=== PATIENT | female | born 1950 | race Caucasian/White ===

== ENCOUNTER 2018-02-05 04:53 | Outpatient (CLI) | payer MEDICARE | END 2018-02-05 23:59 | disposition home or self-care (01) | LOC: DIABETIC 04:53 | PROVIDERS: ATTEND Specialist | DX: E11.65 Type 2 diabetes mellitus with hyperglycemia (principal) | CPT/HCPCS: G0108 ==

== ENCOUNTER 2018-08-09 04:03 | Outpatient (CLI) | payer MEDICARE | END 2018-08-09 23:59 | disposition home or self-care (01) | LOC: DIABETIC 04:03 | PROVIDERS: ATTEND Specialist | DX: E11.65 Type 2 diabetes mellitus with hyperglycemia (principal); Z79.4 Long term (current) use of insulin; Z79.84 Long term (current) use of oral hypoglycemic drugs | CPT/HCPCS: G0108 ==

== ENCOUNTER 2018-11-11 02:10 | Outpatient (CLI) | payer MEDICARE | END 2018-11-11 23:59 | disposition home or self-care (01) | LOC: DIABETIC 02:10 | PROVIDERS: ATTEND Specialist | DX: E11.65 Type 2 diabetes mellitus with hyperglycemia (principal); Z79.84 Long term (current) use of oral hypoglycemic drugs; Z79.4 Long term (current) use of insulin | CPT/HCPCS: G0108 ==

== ENCOUNTER 2023-10-25 16:26 | Inpatient (IN) | payer MEDICARE ==
[~2023-10-25] VITALS: Ht 162.6 cm; Wt 76.4 kg
[2023-10-25] MEDS: ondansetron/PF 4mg/2ml inj IV ONE (18:01)
[2023-10-25] MEDS: normal saline 1000ml 1,000 ML IV SCH (18:02)
[2023-10-25] MEDS: HYDROmorphone 1 mg/ml syringe IV ONE (18:03)
[2023-10-25 18:24] LABS: BASOPHILS # (AUTO) 0.1 X10'3 (0-0.2); BASOPHILS % (AUTO) 0.3 % (0-1); EOSINOPHILS # (AUTO) 0.1 X10'3 (0-0.9); EOSINOPHILS % (AUTO) 0.8 % (0-6); HEMATOCRIT 39.9 % (35.0-45.0); HEMOGLOBIN 12.5 g/dl (12.0-16.0); LYMPHOCYTES # (AUTO) 1.2 X10'3 (1.1-4.8); LYMPHOCYTES % (AUTO) 8.5 % (21-51); MEAN CORPUSCULAR HEMOGLOBIN 25.6 PG (27.0-31.0); MEAN CORPUSCULAR HGB CONC 31.3 g/dL (33.0-36.5); MEAN CORPUSCULAR VOLUME 81.7 FL (78-98); MEAN PLATELET VOLUME 10.1 FL (7.4-10.4); MONOCYTES # (AUTO) 0.8 X10'3 (0-0.9); MONOCYTES % (AUTO) 5.7 % (2-12); NEUTROPHILS # (AUTO) 12.3 X10'3 (1.8-7.7); NEUTROPHILS % (AUTO) 84.7 % (42-75); PLATELET COUNT 185 X10'3 (140-440); RED BLOOD COUNT 4.89 X10'6 (4.20-5.60); RED CELL DISTRIBUTION WIDTH 15.9 % (11.5-14.5); WHITE BLOOD COUNT 14.6 X10'3 (4.5-11.0)
[2023-10-25 18:37] LABS: ALBUMIN 4.3 G/DL (3.4-5.0); ANION GAP 8 (8-16); APTT 23 SECONDS (22-32); BLOOD UREA NITROGEN 14 MG/DL (7-18); BUN/CREATININE RATIO 18.7 (10.0-20.0); CALCIUM 10.4 MG/DL (8.5-10.1); CHLORIDE 103 MMOL/L (99-107); CREATININE 0.75 MG/DL (0.40-0.90); GLUCOSE 185 MG/DL (70-104); POTASSIUM 4.3 MMOL/L (3.5-5.1); PROTHROMBIN TIME 10.9 SECONDS (9.0-12.0); SODIUM 139 MMOL/L (135-145); TOTAL CARBON DIOXIDE 28.5 MMOL/L (24-32); eCRCL 59 ML/MIN; eGFR 76 ML/MIN
[2023-10-25] MEDS ORDERED: magnesium hydroxide 30ml (MOM) UD suspension PO PRN (22:05)
[2023-10-25] MEDS ORDERED: HYDROmorphone inj. 0.5 MG/0.5 ML DISP.SYRIN IV PRN (22:05)
[2023-10-25] MEDS ORDERED: magnesium 4gm in 100ml NS 100 ML IV PRN (22:05)
[2023-10-25] MEDS ORDERED: ondansetron/PF 4mg/2ml inj IV PRN (22:05)
[2023-10-25] MEDS ORDERED: mag hydrox/Alum hydrox/simeth 30ml oral suspension PO PRN (22:05)
[2023-10-25] MEDS ORDERED: magnesium 2GM in 50ml NS 50 ML IV PRN (22:05)
[2023-10-25] MEDS ORDERED: magnesium Cl slow-release 64mg tablet PO PRN (22:05)
[2023-10-25] MEDS ORDERED: potassium Cl 20 mEq SR tablet PO PRN ×2 (22:05)
[2023-10-25] MEDS ORDERED: HYDROmorphone/PF 0.2 MG/ML SYRINGE IV PRN (22:05)
[2023-10-25] MEDS ORDERED: potassium Cl 40MEQ/1/2NS 520ml 520 ML IV PRN (22:05)
[2023-10-25] MEDS ORDERED: acetaminophen 325mg tablet PO PRN ×2 (22:05)
[2023-10-25] MEDS ORDERED: morphine 2 MG/ML inj. syringe IV PRN ×2 (22:05)
[2023-10-25] MEDS ORDERED: glucagon, human recombinant 1mg kit SUBCUT PRN (22:10)
[2023-10-25] MEDS ORDERED: dextrose 50%-water 50ml dispensing syringe IV PRN ×2 (22:10)
[2023-10-25] MEDS ORDERED: DEXTROSE 15 GM of carb/4 tabs (each vial/BOTTLE has 4 tablets) PO PRN ×2 (22:10)
[2023-10-25] MEDS: MESSAGE TO PHARMACY PO ONE (22:48)
[2023-10-25 22:57] LABS: HEMOGLOBIN A1C 7.5 % (4.5-6.2)
[2023-10-25] MEDS: CefTRIAXone/D5W-Rocephin 1gm 50 ML IV ONE (23:00)
[2023-10-25 23:13] LABS: ALANINE AMINOTRANSFERASE 27 U/L (12-78); ALBUMIN 3.9 G/DL (3.4-5.0); ALBUMIN/GLOBULIN RATIO 1.1 (1.1-1.5); ALKALINE PHOSPHATASE 94 IU/L (46-116); ANION GAP 6 (8-16); ASPARTATE AMINO TRANSFERASE 23 U/L (10-37); BILIRUBIN,TOTAL 0.6 MG/DL (0.1-1.0); BLOOD UREA NITROGEN 16 MG/DL (7-18); BUN/CREATININE RATIO 21.1 (10.0-20.0); CALCIUM 9.9 MG/DL (8.5-10.1); CHLORIDE 104 MMOL/L (99-107); CREATININE 0.76 MG/DL (0.40-0.90); GLUCOSE 168 MG/DL (70-104); POTASSIUM 4.2 MMOL/L (3.5-5.1); SODIUM 140 MMOL/L (135-145); TOTAL CARBON DIOXIDE 30.1 MMOL/L (24-32); TOTAL PROTEIN 7.4 G/DL (6.4-8.2); eCRCL 59 ML/MIN; eGFR 75 ML/MIN
[2023-10-25 23:14] LABS: CHOL/HDL RATIO 2.5 (0.00-4.99); CHOLESTEROL 131 MG/DL (0-200); HDL CHOLESTEROL 52 MG/DL (35-60); LDL CHOLESTEROL 54 MG/DL (50-100); TRIGLYCERIDES 83 MG/DL (20-135)
[2023-10-26] VITALS (21 sets, daily range): BP systolic 111–159; BP diastolic 41–91; PULSE 90–103; RESP 13–22; TEMP 97.6–98.8; O2SAT 92–99
[2023-10-26 06:13] LABS: HEMOGLOBIN 10.6 g/dl (12.0-16.0); MEAN CORPUSCULAR HGB CONC 31.7 g/dL (33.0-36.5)
[2023-10-26 06:16] LABS: BASOPHILS % (AUTO) 0.4 % (0-1); EOSINOPHILS % (AUTO) 0 % (0-6); HEMATOCRIT 33.6 % (35.0-45.0); LYMPHOCYTES # (AUTO) 1.3 X10'3 (1.1-4.8); LYMPHOCYTES % (AUTO) 9.6 % (21-51); MEAN CORPUSCULAR HEMOGLOBIN 25.9 PG (27.0-31.0); MEAN CORPUSCULAR VOLUME 81.6 FL (78-98); MEAN PLATELET VOLUME 10.7 FL (7.4-10.4); MONOCYTES # (AUTO) 1.2 X10'3 (0-0.9); MONOCYTES % (AUTO) 9.5 % (2-12); NEUTROPHILS # (AUTO) 10.5 X10'3 (1.8-7.7); NEUTROPHILS % (AUTO) 80.5 % (42-75); PLATELET COUNT 157 X10'3 (140-440); RED BLOOD COUNT 4.11 X10'6 (4.20-5.60); RED CELL DISTRIBUTION WIDTH 15.7 % (11.5-14.5); WHITE BLOOD COUNT 13.1 X10'3 (4.5-11.0)
[2023-10-26 06:22] LABS: APTT 25 SECONDS (22-32); PROTHROMBIN TIME 11.1 SECONDS (9.0-12.0)
[2023-10-26 06:35] LABS: ALANINE AMINOTRANSFERASE 24 U/L (12-78); ALBUMIN 3.6 G/DL (3.4-5.0); ALBUMIN/GLOBULIN RATIO 1.1 (1.1-1.5); ALKALINE PHOSPHATASE 87 IU/L (46-116); ANION GAP 8 (8-16); ASPARTATE AMINO TRANSFERASE 20 U/L (10-37); BILIRUBIN,TOTAL 0.9 MG/DL (0.1-1.0); BLOOD UREA NITROGEN 16 MG/DL (7-18); BUN/CREATININE RATIO 22.9 (10.0-20.0); CALCIUM 9.4 MG/DL (8.5-10.1); CHLORIDE 103 MMOL/L (99-107); FREE T4 (FREE THYROXINE) 1.24 NG/DL (0.73-1.40); GLUCOSE 239 MG/DL (70-104); PHOSPHORUS 3.1 MG/DL (2.3-4.5); POTASSIUM 4.6 MMOL/L (3.5-5.1); SODIUM 137 MMOL/L (135-145); THYROID STIMULATING HORMONE 0.26 ulU/ml (0.34-4.50); TOTAL CARBON DIOXIDE 26.5 MMOL/L (24-32); TOTAL PROTEIN 6.8 G/DL (6.4-8.2); eCRCL 64 ML/MIN; eGFR 82 ML/MIN
[2023-10-26] MEDS: pantoprazole 40mg Tablet.DR PO SCH (07:30)
[2023-10-26] MEDS: atorvastatin 20mg tablet PO SCH (08:00)
[2023-10-26] MEDS: docusate sod 100mg capsule PO SCH (08:00)
[2023-10-26] MEDS: lisinopril 10 MG tablet PO SCH (08:00)
[2023-10-26] MEDS: K and/or MAG REPLACEMENT MC SCH (08:00)
[2023-10-26] MEDS ORDERED: METF-1203 PO (10:18)
[2023-10-26] MEDS ORDERED: DULO60CA65 PO (10:18)
[2023-10-26] MEDS ORDERED: CYAN100070 PO (10:18)
[2023-10-26] MEDS ORDERED: ATOR20TA66 PO (10:18)
[2023-10-26] MEDS ORDERED: LISI20TA28 PO (10:18)
[2023-10-26] MEDS ORDERED: LEVO88TA2 PO (10:18)
[2023-10-26] MEDS ORDERED: INSU100V13 SQ (10:18)
[2023-10-26] MEDS: LidoCAINE 2% Topical Jelly 11mL syringe TOP ONE (11:25)
[2023-10-26] MEDS ORDERED: BUPIVAcaine HCl 0.25%/EPInephrine 1:200,000 inj. 10 ML VIAL ONE (14:04)
[2023-10-26] MEDS ORDERED: vancomycin 1,000mg inj ONE (14:04)
[2023-10-26] MEDS ORDERED: sevoflurane 250ml liquid IH ONE (16:44)
[2023-10-26] MEDS ORDERED: proCHLORperazine 10 MG/2 ml inj IV PRN (16:45)
[2023-10-26] MEDS ORDERED: enalaprilat dihydrate 2.5mg/2ml vial IV PRN (16:45)
[2023-10-26] MEDS ORDERED: morphine 4 MG/ML inj SYRINge IV PRN (16:45)
[2023-10-26] MEDS ORDERED: morphine 2 MG/ML inj. syringe IV PRN (16:45)
[2023-10-26] MEDS ORDERED: meperidine/PF 25mg/ml syringe IV PRN ×2 (16:45)
[2023-10-26] MEDS: ringers solution, lacted 1,000 ML IV SCH (16:45)
[2023-10-26] MEDS ORDERED: labetalol 20mg/4ml (5mg/ml) syringe IV PRN (16:45)
[2023-10-26] MEDS ORDERED: ondansetron/PF 4mg/2ml inj IV PRN (16:45)
[2023-10-26] MEDS ORDERED: fentaNYL/PF 50MCG/1 ML 2ML syringe ONE (16:49)
[2023-10-26] MEDS ORDERED: midazolam 1 mg/ML 2ml injection ONE (16:50)
[2023-10-26] MEDS ORDERED: propofol inj 20 ML IV ONE (16:52)
[2023-10-26] MEDS ORDERED: ceFAZolin 1000mg inj ONE ×2 (17:06)
[2023-10-26] MEDS ORDERED: tranexamic acid 100mg/ml inj. ONE (17:08)
[2023-10-26] MEDS: BUPIVAcaine HCl 0.25%/EPInephrine 1:200,000 inj. 10 ML VIAL SQ ONE (17:20)
[2023-10-26] MEDS: meperidine/PF 25mg/ml syringe IV PRN (18:31)
[2023-10-26] MEDS: enoxaparin 40mg/0.4ml syringe SUBCUT SCH (20:00)
[2023-10-26] MEDS: insulin glargine (Lantus) pen - multi-dose SQ SCH (20:41)
[2023-10-26] MEDS: insulin Lispro (HumaLOG) vial - multi-dose SQ SCH (20:42)
[2023-10-26] MEDS: HYDROcodone/acetaminophen 5mg/325mg tablet PO PRN (20:44)
[2023-10-26] MEDS: ceFAZolin/D5W- 1GM premix 50 ML IV SCH (23:18)
[2023-10-27 02:00] VITALS: BP 141/86; PULSE 105; RESP 20; TEMP 98; O2SAT 96
[2023-10-27 06:00] VITALS: BP 140/61; PULSE 96; RESP 16; TEMP 98.2; O2SAT 97
[2023-10-27 06:26] LABS: BASOPHILS % (AUTO) 0.2 % (0-1); EOSINOPHILS % (AUTO) 0 % (0-6); LYMPHOCYTES # (AUTO) 1.9 X10'3 (1.1-4.8); LYMPHOCYTES % (AUTO) 11.4 % (21-51); MEAN CORPUSCULAR HEMOGLOBIN 26.3 PG (27.0-31.0); MEAN CORPUSCULAR HGB CONC 32.1 g/dL (33.0-36.5); MEAN CORPUSCULAR VOLUME 81.9 FL (78-98); MEAN PLATELET VOLUME 11.1 FL (7.4-10.4); MONOCYTES # (AUTO) 2.2 X10'3 (0-0.9); MONOCYTES % (AUTO) 13.3 % (2-12); NEUTROPHILS # (AUTO) 12.5 X10'3 (1.8-7.7); NEUTROPHILS % (AUTO) 75.1 % (42-75); PLATELET COUNT 153 X10'3 (140-440); RED BLOOD COUNT 3.05 X10'6 (4.20-5.60); RED CELL DISTRIBUTION WIDTH 15.8 % (11.5-14.5); WHITE BLOOD COUNT 16.7 X10'3 (4.5-11.0)
[2023-10-27 06:31] LABS: ALANINE AMINOTRANSFERASE 17 U/L (12-78); ALBUMIN 2.9 G/DL (3.4-5.0); ALKALINE PHOSPHATASE 70 IU/L (46-116); ANION GAP 8 (8-16); ASPARTATE AMINO TRANSFERASE 19 U/L (10-37); BILIRUBIN,TOTAL 0.8 MG/DL (0.1-1.0); BLOOD UREA NITROGEN 16 MG/DL (7-18); BUN/CREATININE RATIO 21.3 (10.0-20.0); CALCIUM 8.4 MG/DL (8.5-10.1); CHLORIDE 105 MMOL/L (99-107); CREATININE 0.75 MG/DL (0.40-0.90); GLUCOSE 265 MG/DL (70-104); MAGNESIUM 1.8 MG/DL (1.5-2.4); PHOSPHORUS 2.9 MG/DL (2.3-4.5); POTASSIUM 4.6 MMOL/L (3.5-5.1); SODIUM 138 MMOL/L (135-145); TOTAL CARBON DIOXIDE 24.7 MMOL/L (24-32); TOTAL PROTEIN 5.8 G/DL (6.4-8.2); eCRCL 59 ML/MIN; eGFR 76 ML/MIN
[2023-10-27 06:33] LABS: INR 1.1 INR; PROTHROMBIN TIME 11.5 SECONDS (9.0-12.0)
[2023-10-27 06:38] LABS: APTT 20 SECONDS (22-32)
[2023-10-27 07:35] LABS: LARGE PLATELETS FEW; PLATELET ESTIMATE NORMAL
[2023-10-27 08:16] VITALS: RESP 16; O2SAT 97
[2023-10-27 10:00] VITALS: BP 120/46; PULSE 103; RESP 16; TEMP 97.4; O2SAT 95
[2023-10-27] MEDS: HYDROcodone/acetaminophen 10/325mg tab PO PRN (10:38)
[2023-10-27] MEDS ORDERED: lisinopril 20mg tablet PO SCH (16:25)
[2023-10-27] MEDS ORDERED: atorvastatin 20mg tablet PO SCH (16:25)
[2023-10-27 18:00] VITALS: BP 104/63; PULSE 84; RESP 14; TEMP 97.3; O2SAT 93
[2023-10-27 22:00] VITALS: BP 116/51; PULSE 92; RESP 16; TEMP 97.3; O2SAT 95
[2023-10-28] VITALS (11 sets, daily range): BP systolic 116–157; BP diastolic 45–60; PULSE 88–106; RESP 14–18; TEMP 97.5–98.7; O2SAT 91–97
[2023-10-28 07:36] LABS: BASOPHILS # (AUTO) 0.1 X10'3 (0-0.2); BASOPHILS % (AUTO) 0.4 % (0-1); EOSINOPHILS # (AUTO) 0.1 X10'3 (0-0.9); EOSINOPHILS % (AUTO) 0.6 % (0-6); LYMPHOCYTES # (AUTO) 1.8 X10'3 (1.1-4.8); LYMPHOCYTES % (AUTO) 13.7 % (21-51); MEAN CORPUSCULAR HEMOGLOBIN 26.5 PG (27.0-31.0); MEAN CORPUSCULAR HGB CONC 32.3 g/dL (33.0-36.5); MEAN CORPUSCULAR VOLUME 82.1 FL (78-98); MONOCYTES # (AUTO) 1.9 X10'3 (0-0.9); MONOCYTES % (AUTO) 14.6 % (2-12); NEUTROPHILS # (AUTO) 9.2 X10'3 (1.8-7.7); NEUTROPHILS % (AUTO) 70.7 % (42-75); PLATELET COUNT 122 X10'3 (140-440); RED BLOOD COUNT 2.53 X10'6 (4.20-5.60); RED CELL DISTRIBUTION WIDTH 16.2 % (11.5-14.5)
[2023-10-28 07:41] LABS: HEMOGLOBIN 6.7 g/dl (12.0-16.0)
[2023-10-28 07:42] LABS: HEMATOCRIT 20.8 % (35.0-45.0)
[2023-10-28 07:45] LABS: APTT 25 SECONDS (22-32); INR 1.1 INR; PROTHROMBIN TIME 11.3 SECONDS (9.0-12.0)
[2023-10-28 07:47] LABS: ALANINE AMINOTRANSFERASE 15 U/L (12-78); ALBUMIN 2.6 G/DL (3.4-5.0); ALBUMIN/GLOBULIN RATIO 0.9 (1.1-1.5); ALKALINE PHOSPHATASE 65 IU/L (46-116); ANION GAP 2 (8-16); ASPARTATE AMINO TRANSFERASE 12 U/L (10-37); BILIRUBIN,TOTAL 0.7 MG/DL (0.1-1.0); BLOOD UREA NITROGEN 16 MG/DL (7-18); CALCIUM 8.1 MG/DL (8.5-10.1); CHLORIDE 105 MMOL/L (99-107); CREATININE 0.64 MG/DL (0.40-0.90); GLUCOSE 220 MG/DL (70-104); MAGNESIUM 1.9 MG/DL (1.5-2.4); PHOSPHORUS 1.8 MG/DL (2.3-4.5); POTASSIUM 4.3 MMOL/L (3.5-5.1); SODIUM 136 MMOL/L (135-145); TOTAL CARBON DIOXIDE 29.5 MMOL/L (24-32); TOTAL PROTEIN 5.6 G/DL (6.4-8.2); eCRCL 70 ML/MIN; eGFR > 90 ML/MIN
[2023-10-28] MEDS ORDERED: INSULIN ASPART SQ SCH (08:00)
[2023-10-28] MEDS: levoTHYROXINE 88mcg tablet PO SCH (08:28)
[2023-10-28] MEDS: duloxetine 30mg CAPSULE.DR PO SCH (08:28)
[2023-10-28 19:46] LABS: HEMATOCRIT 24.1 % (35.0-45.0); MEAN CORPUSCULAR HEMOGLOBIN 27.6 PG (27.0-31.0); MEAN CORPUSCULAR HGB CONC 33.3 g/dL (33.0-36.5); PLATELET COUNT 118 X10'3 (140-440); RED CELL DISTRIBUTION WIDTH 16.8 % (11.5-14.5); WHITE BLOOD COUNT 11.8 X10'3 (4.5-11.0)
[2023-10-29 06:14] VITALS: BP 151/54; PULSE 94; RESP 13; TEMP 97.4; O2SAT 97
[2023-10-29 06:46] LABS: BASOPHILS # (AUTO) 0.1 X10'3 (0-0.2); BASOPHILS % (AUTO) 0.5 % (0-1); EOSINOPHILS # (AUTO) 0.1 X10'3 (0-0.9); EOSINOPHILS % (AUTO) 0.8 % (0-6); HEMATOCRIT 25.2 % (35.0-45.0); HEMOGLOBIN 8.3 g/dl (12.0-16.0); LYMPHOCYTES # (AUTO) 1.6 X10'3 (1.1-4.8); LYMPHOCYTES % (AUTO) 13.9 % (21-51); MEAN CORPUSCULAR HEMOGLOBIN 27.7 PG (27.0-31.0); MEAN CORPUSCULAR HGB CONC 32.8 g/dL (33.0-36.5); MEAN CORPUSCULAR VOLUME 84.4 FL (78-98); MEAN PLATELET VOLUME 9.1 FL (7.4-10.4); MONOCYTES # (AUTO) 1.5 X10'3 (0-0.9); NEUTROPHILS # (AUTO) 8.4 X10'3 (1.8-7.7); NEUTROPHILS % (AUTO) 71.8 % (42-75); PLATELET COUNT 125 X10'3 (140-440); RED BLOOD COUNT 2.99 X10'6 (4.20-5.60); RED CELL DISTRIBUTION WIDTH 16.9 % (11.5-14.5); WHITE BLOOD COUNT 11.7 X10'3 (4.5-11.0)
[2023-10-29 06:56] LABS: PROTHROMBIN TIME 10.9 SECONDS (9.0-12.0)
[2023-10-29 07:02] LABS: ALANINE AMINOTRANSFERASE 21 U/L (12-78); ALBUMIN 2.4 G/DL (3.4-5.0); ALBUMIN/GLOBULIN RATIO 0.8 (1.1-1.5); ALKALINE PHOSPHATASE 66 IU/L (46-116); ANION GAP 1 (8-16); ASPARTATE AMINO TRANSFERASE 18 U/L (10-37); BILIRUBIN,TOTAL 1.2 MG/DL (0.1-1.0); BLOOD UREA NITROGEN 13 MG/DL (7-18); BUN/CREATININE RATIO 21.7 (10.0-20.0); CALCIUM 8.3 MG/DL (8.5-10.1); CHLORIDE 104 MMOL/L (99-107); GLUCOSE 216 MG/DL (70-104); MAGNESIUM 1.9 MG/DL (1.5-2.4); PHOSPHORUS 1.9 MG/DL (2.3-4.5); POTASSIUM 4.2 MMOL/L (3.5-5.1); SODIUM 137 MMOL/L (135-145); TOTAL CARBON DIOXIDE 32.2 MMOL/L (24-32); TOTAL PROTEIN 5.4 G/DL (6.4-8.2); eCRCL 74 ML/MIN; eGFR > 90 ML/MIN
[2023-10-29 08:00] VITALS: RESP 13; O2SAT 97
[2023-10-29 10:00] VITALS: BP 119/61; PULSE 101; RESP 18; TEMP 98.1; O2SAT 100
[2023-10-29 10:18] VITALS: RESP 15; O2SAT 97
[2023-10-29 12:35] VITALS: RESP 16; O2SAT 93
[2023-10-29 14:21] VITALS: RESP 17
== END 2023-10-29 14:50 | DRG 481 ==
LOC: ER 16:27 → ED HOLD 22:06 → ORTHO 4S 10-26 01:27
PROVIDERS: ADMIT Family Medicine; ATTEND Internal Medicine
PROC: 0QH604Z Insertion of Internal Fixation Device into Right Upper Femur, Open Approach (ICD-10-PCS; principal; 2023-10-26 16:44)
PROC: 30233N1 Transfusion of Nonautologous Red Blood Cells into Peripheral Vein, Percutaneous Approach (ICD-10-PCS; 2023-10-28)
DX: S72.141A Displaced intertrochanteric fracture of right femur, initial encounter for closed fracture (principal); R71.0 Precipitous drop in hematocrit; E03.9 Hypothyroidism, unspecified; E78.5 Hyperlipidemia, unspecified; I10 Essential (primary) hypertension; Z66 Do not resuscitate; S50.311A Abrasion of right elbow, initial encounter; S72.21XA Displaced subtrochanteric fracture of right femur, initial encounter for closed fracture; D72.829 Elevated white blood cell count, unspecified; E11.40 Type 2 diabetes mellitus with diabetic neuropathy, unspecified; M25.851 Other specified joint disorders, right hip; W01.0XXA Fall on same level from slipping, tripping and stumbling without subsequent striking against object, initial encounter; Y92.481 Parking lot as the place of occurrence of the external cause; Y93.89 Activity, other specified; Y99.8 Other external cause status; Z79.4 Long term (current) use of insulin; Z80.0 Family history of malignant neoplasm of digestive organs; Z82.49 Family history of ischemic heart disease and other diseases of the circulatory system; Z83.3 Family history of diabetes mellitus; Z84.1 Family history of disorders of kidney and ureter; Z82.3 Family history of stroke; Z88.0 Allergy status to penicillin; Z88.8 Allergy status to other drugs, medicaments and biological substances; Z90.49 Acquired absence of other specified parts of digestive tract
CPT/HCPCS: 36415; 36430; 71045; 73502; 76000; 76882; 80048; 80053; 80061; 82948; 83036; 83605; 83735; 84100; 84439; 84443; 85008; 85025; 85027; 85610; 85730; 86885; 86900; 86901; 86920; 87040; 87081; 93005; 97110; 97161; 97530; 99285; A4215; A4314; A4618; A6212; A6222; A6258; A6449; C1713; G0378; J0690; J0696; J1170; J1650; J2175; J2250; J2405; J2704; J3010; J3370; J3490; J7030; J7040; J7120; P9016